=== PATIENT | male | born 1980 | race Caucasian/White ===

== ENCOUNTER 2019-04-02 09:48 | Emergency (ER) | payer OTHER ==
[~2019-04-02] VITALS: Ht 180.3 cm; Wt 81.6 kg
== END 2019-04-02 15:21 | disposition home or self-care (01) ==
LOC: ER 09:48
DX: G44.009 Cluster headache syndrome, unspecified, not intractable (principal)

== ENCOUNTER 2020-09-26 08:19 | Emergency (ER) | payer OTHER ==
[~2020-09-26] VITALS: Ht 177.8 cm; Wt 83.9 kg
[2020-09-26] MEDS ORDERED: KETO10TA2 PO (10:24)
[2020-09-26] MEDS ORDERED: NORFLEX100MG PO (10:24)
== END 2020-09-26 10:35 | disposition home or self-care (01) ==
LOC: ER 08:19
DX: M54.2 Cervicalgia (principal); M54.89 Other dorsalgia

== ENCOUNTER → 2022-05-15 14:07 | Outpatient (CLI) | payer OTHER ==
[~2022-05-15 14:07] MED LIST: KETO10TA2 PO; NORFLEX100MG PO
== END | disposition home or self-care (01) ==
LOC: LAB 14:07
PROVIDERS: ATTEND Obstetrics & Gynecology Maternal & Fetal Medicine
DX: U07.1 COVID-19 (principal); Z20.828 Contact with and (suspected) exposure to other viral communicable diseases; Z20.822 Contact with and (suspected) exposure to COVID-19

== ENCOUNTER 2022-06-26 21:28 | Emergency (ER) | payer OTHER ==
[~2022-06-26] VITALS: Ht 177.8 cm; Wt 86.2 kg
[2022-06-28] MEDS ORDERED: PERCOCET 5-3251 EACH PO (08:48)
== END 2022-06-26 23:53 | disposition home or self-care (01) ==
LOC: ER 21:28
DX: S82.51XA Displaced fracture of medial malleolus of right tibia, initial encounter for closed fracture (principal); S00.93XA Contusion of unspecified part of head, initial encounter; S30.0XXA Contusion of lower back and pelvis, initial encounter; W17.89XA Other fall from one level to another, initial encounter; Y93.9 Activity, unspecified; Y92.018 Other place in single-family (private) house as the place of occurrence of the external cause; Y99.9 Unspecified external cause status

== ENCOUNTER → 2022-06-28 | Emergency (ER) | payer OTHER ==
[~2022-06-28] MED LIST changes: +PERCOCET 5-3251 EACH PO
== END | disposition home or self-care (01) ==
LOC: ER 08:05
DX: S82.54XA Nondisplaced fracture of medial malleolus of right tibia, initial encounter for closed fracture (principal); S00.31XA Abrasion of nose, initial encounter; W17.89XA Other fall from one level to another, initial encounter; Y93.89 Activity, other specified; Y92.89 Other specified places as the place of occurrence of the external cause; M25.571 Pain in right ankle and joints of right foot; M79.89 Other specified soft tissue disorders

== ENCOUNTER 2023-07-17 07:04 | Emergency (ER) | payer OTHER ==
[~2023-07-17] VITALS: Ht 177.8 cm; Wt 88.5 kg
== END 2023-07-17 09:52 | disposition home or self-care (01) ==
LOC: ER 07:05
DX: M25.571 Pain in right ankle and joints of right foot (principal)